=== PATIENT | male | born 1960 | race Caucasian/White ===

== ENCOUNTER → 2016-09-27 | Outpatient (REF) | payer OTHER ==
[2016-09-27 16:43] LABS: ALBUMIN 4.3 GM/DL (3.2-5.2); ALBUMIN/GLOBULIN RATIO 1.13 (1.00-1.93); ALKALINE PHOSPHATASE 105 U/L (45-117); ALT/SGPT 27 U/L (12-78); ANION GAP 5 MEQ/L (8-16); AST/SGOT 19 U/L (15-37); BILIRUBIN,TOTAL 0.6 MG/DL (0.2-1.0); BLOOD UREA NITROGEN 13 MG/DL (7-18); CALCIUM LEVEL 9.1 MG/DL (8.5-10.1); CARBON DIOXIDE LEVEL 33 MEQ/L (21-32); CHLORIDE LEVEL 102 MEQ/L (98-107); CHOLESTEROL LEVEL 164 MG/DL (<200); CREATININE FOR GFR 0.99 MG/DL (0.70-1.30); GLOMERULAR FILTRATION RATE > 60.0 (>56); GLUCOSE, FASTING 99 MG/DL (70-105); SODIUM LEVEL 140 MEQ/L (136-145); TOTAL PROTEIN 8.1 GM/DL (6.4-8.2); TRIGLYCERIDES LEVEL 103 MG/DL (<150)
== END ==
LOC: M SFHCCLAY 09:49
PROVIDERS: ATTEND Nurse Practitioner
DX: E78.5 Hyperlipidemia, unspecified (principal)

== ENCOUNTER → 2017-11-03 | Outpatient (REF) | payer OTHER ==
[2017-11-03 11:51] LABS: BASO # 0.1 10^3/uL (0.0-0.2); BASO % 1.2 % (0.0-1.0); EOS # 0.2 10^3/uL (0.0-0.50); EOS % 3.2 % (0.0-3.0); HEMOGLOBIN 15.7 g/dl (13.5-17.5); IMMATURE GRANULOCYTE % 0.3 % (0-3.0); LYMPH # 0.9 10^3/uL (1.5-4.5); LYMPH % 14.1 % (24.0-44.0); MEAN CORPUSCULAR HEMOGLOBIN 29.9 pg (27.0-33.0); MEAN CORPUSCULAR HGB CONC 34.9 g/dl (32.0-36.5); MEAN CORPUSCULAR VOLUME 85.7 fl (80.0-96.0); MONO % 14.7 % (0.0-5.0); NEUTROPHILS # 4.4 10^3/uL (1.8-7.7); NEUTROPHILS % 66.5 % (36.0-66.0); PLATELET COUNT, AUTOMATED 194 10^3/uL (150-450); RED BLOOD COUNT 5.25 10^6/uL (4.30-6.10); WHITE BLOOD COUNT 6.6 10^3/uL (4.0-10.0)
[2017-11-03 12:12] LABS: ALBUMIN 3.9 GM/DL (3.2-5.2); ALBUMIN/GLOBULIN RATIO 1.15 (1.00-1.93); ALKALINE PHOSPHATASE 98 U/L (45-117); ALT/SGPT 26 U/L (12-78); ANION GAP 6 MEQ/L (8-16); AST/SGOT 18 U/L (7-37); BILIRUBIN,TOTAL 0.6 MG/DL (0.2-1.0); BLOOD UREA NITROGEN 18 MG/DL (7-18); CALCIUM LEVEL 8.4 MG/DL (8.5-10.1); CARBON DIOXIDE LEVEL 28 MEQ/L (21-32); CHLORIDE LEVEL 106 MEQ/L (98-107); CHOLESTEROL LEVEL 143 MG/DL (<200); CHOLESTEROL RISK RATIO 3.575 (<5); CREATININE FOR GFR 0.96 MG/DL (0.70-1.30); GLOMERULAR FILTRATION RATE > 60.0 (>56); GLUCOSE, FASTING 91 MG/DL (70-100); HDL CHOLESTEROL 40 MG/DL (>40); LDL CHOLESTEROL 86.4 MG/DL (<100); NON-HDL-C 103 MG/DL; POTASSIUM SERUM 4.4 MEQ/L (3.5-5.1); SODIUM LEVEL 140 MEQ/L (136-145); TOTAL PROTEIN 7.3 GM/DL (6.4-8.2); TRIGLYCERIDES LEVEL 83 MG/DL (<150)
[2017-11-03 12:51] LABS: ESTIMATED AVERAGE GLUCOSE 117 MG/DL (60-110); HEMOGLOBIN A1c 5.7 %
== END ==
LOC: M SFHCCLAY 08:27
DX: E78.2 Mixed hyperlipidemia (principal); Z00.00 Encounter for general adult medical examination without abnormal findings (principal); N52.9 Male erectile dysfunction, unspecified; E66.9 Obesity, unspecified; R73.01 Impaired fasting glucose
CPT/HCPCS: 80053

== ENCOUNTER → 2018-10-05 | Outpatient (CLI) | payer OTHER ==
--- NOTE | 2018-10-10 23:30 | SLEEPHOME ---
DATE OF PROCEDURE: 10/05/2018 Diagnostic home sleep testing was performed due to concern for the obstructive sleep apnea syndrome in this patient with a history of snoring and nonrestorative sleep. For testing a nocturnal T3 respiratory monitoring device was used. Continuous record was made of pulse, oxygen saturation, airflow, chest, abdominal strain and body position. 9 hours and 59 minutes of data were reviewed. There were 7 hours and 3 minutes marked as time in bed. During the interval marked time in bed, there were only 29 respiratory events identified of 10 seconds in duration or greater for a respiratory event index of 4.1. The events seen were more frequently identified in the supine posture. Baseline pulse rate 56 beats per minute, pulse rate ranged 46-129. Baseline saturation 95%, saturations fell to 87% with an oxygen desaturation index of 2.4. Testing was performed in both the supine and nonsupine positions. IMPRESSION: Borderline diagnostic home sleep test with repetitive respiratory events, an index of 4.1, and brief desaturations to 87% is suggestive of sleep disordered breathing. RECOMMENDATIONS: Sleep position retraining for avoidance of the supine posture should result in significant improvement based on these finding. If the patient continues to experience difficulty, referral for a formal sleep evaluation and in laboratory nocturnal polysomnography is a more sensitive measure for mild apneic disease. MIKAEL
== END ==
LOC: M SLEEP HO 10:58
PROVIDERS: ATTEND Nurse Practitioner Adult Health
DX: G47.30 Sleep apnea, unspecified (principal)

== ENCOUNTER → 2018-11-27 | Outpatient (REF) | payer OTHER ==
[2018-11-27 13:01] LABS: ALT/SGPT 28 U/L (12-78); BILIRUBIN,TOTAL 0.5 MG/DL (0.2-1.0); BLOOD UREA NITROGEN 19 MG/DL (7-18); CALCIUM LEVEL 8.4 MG/DL (8.5-10.1); CARBON DIOXIDE LEVEL 30 MEQ/L (21-32); CHLORIDE LEVEL 105 MEQ/L (98-107); CHOLESTEROL LEVEL 174 MG/DL (<200); CHOLESTEROL RISK RATIO 3.866 (<5); CREATININE FOR GFR 0.91 MG/DL (0.70-1.30); GLOMERULAR FILTRATION RATE > 60.0 (>56); GLUCOSE, FASTING 117 MG/DL (70-100); HDL CHOLESTEROL 45 MG/DL (>40); LDL CHOLESTEROL 104 MG/DL (<100); NON-HDL-C 129 MG/DL; POTASSIUM SERUM 4.2 MEQ/L (3.5-5.1); SODIUM LEVEL 140 MEQ/L (136-145); TOTAL PROTEIN 7.4 GM/DL (6.4-8.2); TRIGLYCERIDES LEVEL 126 MG/DL (<150)
[2018-11-27 14:16] LABS: HEMOGLOBIN A1c 5.8 %
== END ==
LOC: M SFHCCLAY 07:38
PROVIDERS: ATTEND Family Medicine
DX: E78.2 Mixed hyperlipidemia (principal); R73.01 Impaired fasting glucose

== ENCOUNTER → 2018-12-13 | Outpatient (CLI) | payer OTHER | LOC: M SMT 11:20 | PROVIDERS: ATTEND Nurse Practitioner Women's Health | DX: Z12.5 Encounter for screening for malignant neoplasm of prostate (principal) | CPT/HCPCS: 36415; G0103 ==

== ENCOUNTER → 2018-12-19 | Outpatient (CLI) | payer OTHER ==
[~2018-12-19] MED LIST: E-Z-GAS II EFFERVESCENT PACKET (SODIUM BICARB./CITRIC ACID/SIMETHICONE) As Ordered ONE; E-Z-HD 98% w/w 340GM SUSP BTL As Ordered ONE; E-Z-PAQUE 96% w/w SUSP 176GM BTL As Ordered ONE
--- NOTE | 2018-12-19 16:57 | REP ---
Upper GI air contrast The procedure was performed under the direct supervision of Dr. Tubbs. The images were reviewed with Dr. Tubbs The project developer film shows no organomegaly or pathological masses. The intestinal gas pattern is non-specific. There is a small irregular calcification in the pelvis above the ischial spine. This is nonspecific and may represent a ureteral stone versus a phlebolith. Correlate clinically. Liquid barium and gas producing crystals were given in the erect position as well as liquid barium in the prone oblique position in order to perform a double contrast upper GI examination. The oral and pharyngeal stages of deglutition are unremarkable. Esophageal transport is prompt and efficient and there is no esophagitis, stricture or mucosal ring. There is a small sliding-type hiatal hernia. Gastroesophageal reflux is not demonstrated on this examination. The stomach avelar are normally outlined . The rugal folds are smooth and regular. There is no gastritis neoplasm or ulcer disease. In the post bulbar duodenum there are thickened folds which may represent duodenitis. There is no samara ulcer identified. The visualized portion of the proximal small bowel appears normal in course and caliber. Impression: 1. There is a small sliding-type hiatal hernia. 2. There are thickened folds in the post bulbar duodenum which may represent duodenitis. There is no samara ulcer identified. 3. There is a small irregular calcification in the pelvis above the ischial spine. This is nonspecific and may represent a ureteral stone versus a phlebolith. Correlate clinically. 1.5 minutes of fluoro time was utilized for this procedure. Reviewed by JERMAINE Rossi 12/19/2018 04:47 P Electronically Signed by Husam Tubbs MD 12/19/2018 04:48 P
== END ==
LOC: M RAD 09:53
PROVIDERS: ATTEND Family Medicine
DX: K21.9 Gastro-esophageal reflux disease without esophagitis (principal)

== ENCOUNTER → 2019-03-30 | Outpatient (REF) | payer OTHER | LOC: M SFHCCLAY 15:48 | PROVIDERS: ATTEND Family Medicine | DX: N39.0 Urinary tract infection, site not specified (principal) ==

== ENCOUNTER → 2019-04-21 | Outpatient (REF) | payer OTHER | LOC: M LAB REF 09:03 | PROVIDERS: ATTEND Physician Assistant | DX: R30.0 Dysuria (principal) ==

== ENCOUNTER → 2019-06-05 | Outpatient (REF) | payer OTHER ==
[2019-06-05 16:34] LABS: BASO # 0.1 10^3/uL (0.0-0.2); BASO % 0.6 % (0.0-1.0); EOS # 0.1 10^3/uL (0.0-0.5); EOS % 0.9 % (0.0-3.0); HEMATOCRIT 50.6 % (42.0-52.0); HEMOGLOBIN 16.3 g/dl (13.5-17.5); LYMPH # 1.1 10^3/uL (1.5-5.0); LYMPH % 12.4 % (24.0-44.0); MEAN CORPUSCULAR HEMOGLOBIN 28.2 pg (27.0-33.0); MEAN CORPUSCULAR HGB CONC 32.2 g/dl (32.0-36.5); MEAN CORPUSCULAR VOLUME 87.5 fl (80.0-96.0); MONO # 0.9 10^3/uL (0.0-0.8); MONO % 10.7 % (0.0-5.0); NEUTROPHILS # 6.3 10^3/uL (1.5-8.5); NEUTROPHILS % 75.2 % (36.0-66.0); PLATELET COUNT, AUTOMATED 212 10^3/uL (150-450); RED BLOOD COUNT 5.78 10^6/uL (4.30-6.10); WHITE BLOOD COUNT 8.4 10^3/uL (4.0-10.0)
[2019-06-05 16:38] LABS: ALBUMIN 4.2 GM/DL (3.2-5.2); ALT/SGPT 24 U/L (12-78); BILIRUBIN,TOTAL 0.8 MG/DL (0.2-1.0); BLOOD UREA NITROGEN 13 MG/DL (7-18); C REACTIVE PROTEIN QUANTITATIV 1.73 MG/DL (0.00-0.30); CALCIUM LEVEL 8.9 MG/DL (8.5-10.1); CARBON DIOXIDE LEVEL 29 MEQ/L (21-32); CHLORIDE LEVEL 101 MEQ/L (98-107); CHOLESTEROL LEVEL 140 MG/DL (<200); CHOLESTEROL RISK RATIO 3.888 (<5); CREATININE FOR GFR 1.11 MG/DL (0.70-1.30); GLOMERULAR FILTRATION RATE > 60.0 (>56); GLUCOSE, FASTING 86 MG/DL (70-100); HDL CHOLESTEROL 36 MG/DL (>40); LDL CHOLESTEROL 86 MG/DL (<100); NON-HDL-C 104 MG/DL; POTASSIUM SERUM 4.3 MEQ/L (3.5-5.1); RHEUMATOID FACTOR QUANT < 10.0 IU/ML (<15.0); SODIUM LEVEL 137 MEQ/L (136-145); TOTAL PROTEIN 7.9 GM/DL (6.4-8.2); TRIGLYCERIDES LEVEL 92 MG/DL (<150)
[2019-06-05 16:58] LABS: HEMOGLOBIN A1c 5.5 %
[2019-06-08 00:07] LABS: ANA (HEP2) Negative (.); CYCLIC CITRULLINATED PEPTIDE 9 units (0-19); Lyme Disease IgG/IgM Antibodie <0.91 ISR (0.00-0.90); Lyme Disease IgM Ab Quantitati <0.80 index (0.00-0.79)
== END ==
LOC: M SFHCCLAY 09:42
PROVIDERS: ATTEND Family Medicine
DX: E78.2 Mixed hyperlipidemia (principal); R73.01 Impaired fasting glucose; M25.50 Pain in unspecified joint

== ENCOUNTER → 2019-07-10 | Outpatient (REF) | payer OTHER ==
[2019-07-10 13:13] LABS: APPEARANCE, URINE CLEAR (CLEAR); BACTERIA, URINE AUTO NEGATIVE (NEGATIVE); BILIRUBIN, URINE AUTO NEGATIVE (NEGATIVE); BLOOD, URINE BLOOD NEGATIVE (NEGATIVE); COLOR, URINE YELLOW (YELLOW); GLUCOSE, URINE (UA) AUTO NEGATIVE (NEGATIVE); KETONE, URINE AUTO NEGATIVE (NEGATIVE); LEUKOCYTE ESTERASE, URINE AUTO NEGATIVE (NEGATIVE); NITRITE, URINE AUTO NEGATIVE (NEGATIVE); PROTEIN, URINE AUTO NEGATIVE (NEGATIVE); RBC, URINE AUTO 0 /HPF (0-3); SPECIFIC GRAVITY URINE AUTO 1.013 (1.002-1.035); SQUAMOUS EPITHELIAL CELL UR AU 0 /HPF (0-6); UROBILINOGEN, URINE AUTO 0.2 mg/dL (0.0-2.0); WBC, URINE AUTO 1 /HPF (0-3)
== END ==
LOC: M SMT 12:31
PROVIDERS: ATTEND Nurse Practitioner Women's Health
DX: N39.0 Urinary tract infection, site not specified (principal)

== ENCOUNTER → 2019-07-23 | Outpatient (REF) | payer OTHER ==
[2019-07-23 18:24] LABS: APPEARANCE, URINE CLOUDY (CLEAR); BACTERIA, URINE AUTO 3+ (NEGATIVE); BILIRUBIN, URINE AUTO NEGATIVE (NEGATIVE); BLOOD, URINE BLOOD 1+ (NEGATIVE); COLOR, URINE YELLOW (YELLOW); GLUCOSE, URINE (UA) AUTO NEGATIVE (NEGATIVE); KETONE, URINE AUTO NEGATIVE (NEGATIVE); LEUKOCYTE ESTERASE, URINE AUTO 1+ (NEGATIVE); MUCUS, URINE SMALL (NEGATIVE); NITRITE, URINE AUTO POSITIVE (NEGATIVE); PROTEIN, URINE AUTO NEGATIVE (NEGATIVE); RBC, URINE AUTO 2 /HPF (0-3); SQUAMOUS EPITHELIAL CELL UR AU 0 /HPF (0-6); UROBILINOGEN, URINE AUTO 0.2 mg/dL (0.0-2.0); WBC, URINE AUTO 26 /HPF (0-3)
== END ==
LOC: M LABSMT 10:50
PROVIDERS: ATTEND Nurse Practitioner Women's Health
DX: N39.0 Urinary tract infection, site not specified (principal)

== ENCOUNTER → 2019-08-14 | Outpatient (REF) | payer OTHER ==
[2019-08-14 17:37] LABS: APPEARANCE, URINE CLEAR (CLEAR); BACTERIA, URINE AUTO NEGATIVE (NEGATIVE); BILIRUBIN, URINE AUTO NEGATIVE (NEGATIVE); BLOOD, URINE BLOOD NEGATIVE (NEGATIVE); COLOR, URINE YELLOW (YELLOW); GLUCOSE, URINE (UA) AUTO NEGATIVE (NEGATIVE); KETONE, URINE AUTO NEGATIVE (NEGATIVE); LEUKOCYTE ESTERASE, URINE AUTO NEGATIVE (NEGATIVE); NITRITE, URINE AUTO NEGATIVE (NEGATIVE); PROTEIN, URINE AUTO NEGATIVE (NEGATIVE); RBC, URINE AUTO 0 /HPF (0-3); SPECIFIC GRAVITY URINE AUTO 1.019 (1.002-1.035); SQUAMOUS EPITHELIAL CELL UR AU 0 /HPF (0-6); UROBILINOGEN, URINE AUTO 0.2 mg/dL (0.0-2.0); WBC, URINE AUTO 0 /HPF (0-3)
== END ==
LOC: M LAB REF 17:09
PROVIDERS: ATTEND Urology
DX: N41.9 Inflammatory disease of prostate, unspecified (principal)

== ENCOUNTER → 2019-10-19 | Outpatient (CLI) | payer OTHER ==
[~2019-10-19] MED LIST changes: +ASPI81TA85 PO; +BACT800T5 PO; -E-Z-GAS II EFFERVESCENT PACKET (SODIUM BICARB./CITRIC ACID/SIMETHICONE) As Ordered ONE; -E-Z-HD 98% w/w 340GM SUSP BTL As Ordered ONE; -E-Z-PAQUE 96% w/w SUSP 176GM BTL As Ordered ONE
== END ==
LOC: M LABSMTC 10:40
PROVIDERS: ATTEND Anesthesiology
DX: Z01.818 Encounter for other preprocedural examination (principal); Z11.59 Encounter for screening for other viral diseases
CPT/HCPCS: C9803; U0003

== ENCOUNTER 2019-10-22 12:03 | Day surgery (SDC) | payer OTHER ==
[~2019-10-22] VITALS: Ht 180.3 cm; Wt 109.3 kg
[~2019-10-22 12:03] MED LIST changes: +LIDOCAINE 2% 100MG/5ML SDV (FOR ANES.) As Ordered ONE; +NS 1,000 ML IV ONE; +fentaNYL 100 MCG/2 ML INJECTION (J3010) As Ordered ONE; +propofoL 500 MG/50 ML VIAL As Ordered ONE
--- NOTE | 2019-10-22 13:53 | ROOR ---
Patient Name: Larry Olivarez Procedure Date: 10/22/2019 12:56 PM Date of : 1960 Age: 59 Room: [facility] Gender: Male Note Status: Finalized Procedure: Colonoscopy Indications: High risk colon cancer surveillance: Personal history of colonic polyps Providers: Ashwin REAGAN MD Referring MD: BASSAM BERRY DO Requesting Provider: Medicines: Monitored Anesthesia Care Complications: No immediate complications. Procedure: Pre-Anesthesia Assessment: - The heart rate, respiratory rate, oxygen saturations, blood pressure, adequacy of pulmonary ventilation, and response to care were monitored throughout the procedure. The Colonoscope was introduced through the anus and advanced to 5 cm into the ileum. The colonoscopy was performed without difficulty. The patient tolerated the procedure well. The quality of the bowel preparation was good. Findings: The perianal and digital rectal examinations were normal. The terminal ileum contained one umbilicated, non-bleeding pale/wite submucosal nodule. The nodule was 10 mm in diameter. Cold snare was used to unroof, and biopsies were taken with a cold forceps for histology. To prevent bleeding after the biopsy, one hemostatic clip was successfully placed. A 6 mm polyp was found in the sigmoid colon. The polyp was sessile. The polyp was removed with a cold snare. Resection and retrieval were complete. Small Internal Hemorrhoids. The exam was otherwise without abnormality on direct and retroflexion views. Impression: - One 10mm submucosal, pale nodule in the terminal ileum. Unroofed and Biopsied to r/o lipoma, r/o carcinoid, r/o GIST. Clip was placed. - One 6 mm polyp in the sigmoid colon, removed with a cold snare. Resected and retrieved. - Small Internal Hemorrhoids. - The examination was otherwise normal on direct and retroflexion views. Recommendation: - Await pathology results. - Telephone endoscopist for pathology results in 2 weeks. Ashwin Reagan MD Ashwin REAGAN MD 10/22/2019 1:53:05 PM Electronically signed by Ashwin REAGAN MD Number of Addenda: 0 Note Initiated On: 10/22/2019 12:56 PM Estimated Blood Loss: Estimated blood loss: none.
--- NOTE | 2019-10-22 13:57 | ROOR ---
Patient Name: Larry Olivarez Procedure Date: 10/22/2019 12:54 PM Date of : 1960 Age: 59 Room: [facility] Gender: Male Note Status: Finalized Procedure: Upper GI endoscopy Indications: Heartburn Providers: Ashwin REAGAN MD Referring MD: BASSAM BERRY DO Requesting Provider: Medicines: Monitored Anesthesia Care Complications: No immediate complications. Procedure: Pre-Anesthesia Assessment: - The heart rate, respiratory rate, oxygen saturations, blood pressure, adequacy of pulmonary ventilation, and response to care were monitored throughout the procedure. The Endoscope was introduced through the mouth, and advanced to the second part of duodenum. The upper GI endoscopy was accomplished without difficulty. The patient tolerated the procedure well. Findings: Moderately severe esophagitis was found at the gastroesophageal junction. Biopsies were taken with a cold forceps for histology. Scattered mild inflammation was found in the gastric antrum. Biopsies were taken with a cold forceps for Helicobacter pylori testing. Scattered mild inflammation characterized by erythema was found in the first portion of the duodenum. Biopsies were taken with a cold forceps for histology. Impression: - Moderate esophagitis. Biopsied. - Mild gastritis. Biopsied. - Mild duodenitis. Biopsied. Recommendation: - Use Prilosec (omeprazole) 40 mg PO daily. - (the script was sent to your pharmacy on file) - Telephone endoscopist for pathology results in 2 weeks. Ashwin Reagan MD Ashwin REAGAN MD 10/22/2019 1:57:40 PM Electronically signed by Ashwin REAGAN MD Number of Addenda: 0 Note Initiated On: 10/22/2019 12:54 PM Estimated Blood Loss: Estimated blood loss: none.
[2019-10-22 14:15] VITALS: BP 116/64
== END 2019-10-22 14:57 | disposition home or self-care (01) ==
LOC: M OPP 12:03
PROVIDERS: ATTEND Internal Medicine Gastroenterology
DX: Z12.11 Encounter for screening for malignant neoplasm of colon (principal); Z86.010 Personal history of colon polyps; D13.39 Benign neoplasm of other parts of small intestine; D12.5 Benign neoplasm of sigmoid colon; K20.9 Esophagitis, unspecified; K29.70 Gastritis, unspecified, without bleeding; K29.80 Duodenitis without bleeding; R12 Heartburn; Z79.82 Long term (current) use of aspirin; Z79.899 Other long term (current) drug therapy; Z91.030 Bee allergy status; Z87.891 Personal history of nicotine dependence
CPT/HCPCS: 43239; 45380; 45385; 88305; J3010

== ENCOUNTER → 2020-03-26 | Outpatient (REF) | payer OTHER ==
[~2020-03-26] MED LIST changes: -ASPI81TA85 PO; +ASPI81TA86 PO; -LIDOCAINE 2% 100MG/5ML SDV (FOR ANES.) As Ordered ONE; -NS 1,000 ML IV ONE; -fentaNYL 100 MCG/2 ML INJECTION (J3010) As Ordered ONE; -propofoL 500 MG/50 ML VIAL As Ordered ONE
[2020-03-26 13:42] LABS: ALBUMIN 3.9 GM/DL (3.2-5.2); ALT/SGPT 23 U/L (12-78); BILIRUBIN,TOTAL 0.6 MG/DL (0.2-1.0); BLOOD UREA NITROGEN 16 MG/DL (7-18); CALCIUM LEVEL 9.4 MG/DL (8.5-10.1); CARBON DIOXIDE LEVEL 29 MEQ/L (21-32); CHLORIDE LEVEL 105 MEQ/L (98-107); CHOLESTEROL LEVEL 222 MG/DL (<200); CHOLESTEROL RISK RATIO 5.842 (<5); CREATININE FOR GFR 1.04 MG/DL (0.70-1.30); GLOMERULAR FILTRATION RATE > 60.0 (>56); GLUCOSE, FASTING 101 MG/DL (70-100); HDL CHOLESTEROL 38 MG/DL (>40); LDL CHOLESTEROL 151 MG/DL (<100); NON-HDL-C 184 MG/DL; SODIUM LEVEL 140 MEQ/L (136-145); TOTAL PROTEIN 7.6 GM/DL (6.4-8.2); TRIGLYCERIDES LEVEL 165 MG/DL (<150)
[2020-03-26 19:41] LABS: HEMOGLOBIN A1c 5.5 %
== END ==
LOC: M SFHCCLAY 11:09
PROVIDERS: ATTEND Family Medicine
DX: E78.2 Mixed hyperlipidemia (principal); R73.01 Impaired fasting glucose

== ENCOUNTER → 2020-03-26 | Outpatient (REF) | payer OTHER | LOC: M SFHCCLAY 12:31 | PROVIDERS: ATTEND Family Medicine | DX: E78.2 Mixed hyperlipidemia (principal); R73.01 Impaired fasting glucose ==

== ENCOUNTER → 2020-09-12 | Outpatient (REF) | payer OTHER ==
[2020-09-15 17:07] LABS: TESTOSTERONE FREE (DIRECT) 5.1 pg/mL (7.2-24.0)
== END ==
LOC: M SFHCCLAY 12:36
PROVIDERS: ATTEND Urology
DX: N52.9 Male erectile dysfunction, unspecified (principal)

== ENCOUNTER → 2021-03-04 | Outpatient (CLI) | payer OTHER ==
[~2021-03-04] MED LIST changes: +ASPI81TA26 PO; +CHLO25TA PO; +OMEP40CA4 PO
== END ==
LOC: M LABSMTC 10:35
PROVIDERS: ATTEND Anesthesiology
DX: Z01.812 Encounter for preprocedural laboratory examination (principal); Z20.822 Contact with and (suspected) exposure to COVID-19

== ENCOUNTER 2021-03-09 07:23 | Day surgery (SDC) | payer OTHER ==
[~2021-03-09] VITALS: Ht 180.3 cm; Wt 113.9 kg
[~2021-03-09 07:23] MED LIST changes: +LIDOCAINE 2% 100MG/5ML SDV (FOR ANES.) As Ordered ONE; +NS 1,000 ML IV ONE; +propofoL 200 MG/20 ML VIAL As Ordered ONE
--- OUTSIDE RECORDS SUMMARY | 2021-03-09 07:26 | CCD ---
Author Author [facility] Organization [facility] Address Unknown Phone Unavailable Care Team Providers [employer] Name Role Phone Maring, Harry PA Unavailable Unavailable Maring, Harry PA Unavailable Unavailable Maring, Harry PA Unavailable Unavailable Maring, Harry PA Unavailable Unavailable Maring, Harry PA Unavailable Unavailable Maring, Harry PA Unavailable Unavailable Maring, Harry PA Unavailable Unavailable Maring, Harry PA Unavailable Unavailable Maring, Ahrry PA Unavailable Unavailable Maring, Harry PA Unavailable Unavailable Maring, Harry PA Unavailable Unavailable Maring, Harry PA Unavailable Unavailable Maring, Harry PA Unavailable Unavailable Maring, Harry PA Unavailable Unavailable Maring, Harry PA Unavailable Unavailable Maring, Harry PA Unavailable Unavailable VIVIAN JEFFERSON MD Unavailable Unavailable VIVIAN JEFFERSON MD Unavailable Unavailable VIVIAN JEFFERSON MD Unavailable Unavailable VIVIAN JEFFERSON MD Unavailable Unavailable VIVIAN JEFFERSON MD Unavailable Unavailable VIVIAN JEFFERSON MD Unavailable Unavailable VIVIAN JEFFERSON MD Unavailable Unavailable VIVIAN JEFFERSON MD Unavailable Unavailable VIVIAN JEFFERSON MD Unavailable Unavailable VIVIAN JEFFERSON MD Unavailable Unavailable VIVIAN JEFFERSON MD Unavailable Unavailable VIVIAN JEFFERSON MD Unavailable Unavailable VIVIAN JEFFERSON MD Unavailable Unavailable VIVIAN JEFFERSON MD Unavailable Unavailable VIVIAN JEFFERSON MD Unavailable Unavailable VIVIAN JEFFERSON MD Unavailable Unavailable VIVIAN JEFFERSON MD Unavailable Unavailable VIVIAN JEFFERSON MD Unavailable Unavailable VIVIAN JEFFERSON MD Unavailable Unavailable VIVIAN JEFFERSON MD Unavailable Unavailable VIVIAN JEFFERSON MD Unavailable Unavailable VIVIAN JEFFERSON MD Unavailable Unavailable VIVIAN JEFFERSON MD Unavailable Unavailable REINDL, VIVIAN MD Unavailable Unavailable REINDL, VIVIAN MD Unavailable Unavailable REINDL, VIVIAN MD Unavailable Unavailable REINDL, VIVIAN MD Unavailable Unavailable REINDL, VIVIAN MD Unavailable Unavailable REINDL, VIVIAN MD Unavailable Unavailable REINDL, VIVIAN MD Unavailable Unavailable REINDL, VIVIAN MD Unavailable Unavailable REINDL, VIVIAN MD Unavailable Unavailable REINDL, VIVIAN MD Unavailable Unavailable REINDL, VIVIAN MD Unavailable Unavailable REINDL, VIVIAN MD Unavailable Unavailable REINDL, VIVIAN MD Unavailable Unavailable REINDL, VIVIAN MD Unavailable Unavailable REINDL, VIVIAN MD Unavailable Unavailable REINDL, VIVIAN MD Unavailable Unavailable REINDL, VIVIAN MD Unavailable Unavailable REINDL, VIVIAN MD Unavailable Unavailable REINDL, VIVIAN MD Unavailable Unavailable Re-disclosure Warning The records that you are about to access may contain information from federally-assisted alcohol or drug abuse programs. If such information is present, then the following federally mandated warning applies: This information has been disclosed to you from records protected by federal confidentiality rules (42 CFR part 2). The federal rules prohibit you from making any further disclosure of this information unless further disclosure is expressly permitted by the written consent of the person to whom it pertains or as otherwise permitted by 42 CFR part 2. A general authorization for the release of medical or other information is NOT sufficient for this purpose. The Federal rules restrict any use of the information to criminally investigate or prosecute any alcohol or drug abuse patient.The records that you are about to access may contain highly sensitive health information, the redisclosure of which is protected by Article 27-F of the [facility] Public Health law. If you continue you may have access to information: Regarding HIV / AIDS; Provided by facilities licensed or operated by the [facility] Office of Mental Health; or Provided by the [facility] Office for People With Developmental Disabilities. If such information is present, then the following [facility] mandated warning applies: This information has been disclosed to you from confidential records which are protected by state law. State law prohibits you from making any further disclosure of this information without the specific written consent of the person to whom it pertains, or as otherwise permitted by law. Any unauthorized further disclosure in violation of state law may result in a fine or long term sentence or both. A general authorization for the release of medical or other information is NOT sufficient authorization for further disc losure. Encounters Encounter Providers Location Date Indications Data Source(s ) Unknown [address] [address] 12/05/2020 12:00:00 AM EDT eCW1 ([facility]) Outpatient Attender: VIVIAN Coombs/Sawyer/Manuelito/Pamela cabrera 11/20/2020 01:00:00 PM EDT MEDENT ([facility]) [place] [address] [address] 09/09/2020 12:00:00 AM EDT eCW1 ([facility]) [place] [address] [address] 09/01/2020 12:00:00 AM EDT eCW1 ([facility]) [place] [address] [address] 07/23/2020 12:00:00 AM EST eCW1 ([facility]) Outpatient Attender: Harry URBAN 06/26/19 09:04:06 AM EST - 06/26/2020 09:31:37 AM EST DocuTap ([facility] ) [place] [address] [address] 05/30/2020 12:00:00 AM EST eCW1 ([facility]) [place] [address] [address] 05/13/2020 12:00:00 AM EST eCW1 ([facility]) [place] [address] [address] 03/28/2020 12:00:00 AM EST eCW1 ([facility]) [place] [address] [address] 03/24/2020 12:00:00 AM EST eCW1 ([facility]) Immunizations Vaccine Date Status Description Data Source(s) COVID-19 dose #2 given elsewhere Unspecified 08/20/2020 07:3 8:00 AM EDT completed eCW1 ([facility]) COVID-19 dose #2 given elsewhere Unspecified 08/20/2020 07:3 8:00 AM EDT completed eCW1 ([facility]) COVID-19 dose #2 given elsewhere Unspecified 08/20/2020 07:3 8:00 AM EDT completed eCW1 ([facility]) COVID-19 VACCINE Pfizer 08/20/2020 12:00:00 AM EDT completed NYSIIS Vaccine Series Complete: YESThis Data wa s Submitted to [facility] Via [employer]. COVID-19 dose #1 given elsewhere Unspecified 07/30/2020 07:3 8:00 AM EST completed eCW1 ([facility]) COVID-19 dose #1 given elsewhere Unspecified 07/30/2020 07:3 8:00 AM EST completed eCW1 ([facility]) COVID-19 dose #1 given elsewhere Unspecified 07/30/2020 07:3 8:00 AM EST completed eCW1 ([facility]) COVID-19 VACCINE Pfizer 07/30/2020 12:00:00 AM EST completed NYSIIS Vaccine Series Complete: NOThis Data was Submitted to [facility] Via [employer]. influenza, recombinant, quadrIvalent,injectable, prese rvative free 03/28/2020 11:23:00 AM EST completed eCW1 ([facility]) influenza, recombinant, quadrIvalent,injectable, prese rvative free 03/28/2020 11:23:00 AM EST completed eCW1 ([facility]) influenza, recombinant, quadrIvalent,injectable, prese rvative free 03/28/2020 11:23:00 AM EST completed eCW1 ([facility]) influenza, recombinant, quadrIvalent,injectable, prese rvative free 03/28/2020 11:23:00 AM EST completed eCW1 ([facility]) influenza, recombinant, quadrIvalent,injectable, prese rvative free 03/28/2020 11:23:00 AM EST completed eCW1 ([facility]) influenza, recombinant, quadrIvalent,injectable, prese rvative free 03/28/2020 11:23:00 AM EST completed eCW1 ([facility]) influenza, recombinant, quadrIvalent,injectable, prese rvative free 03/28/2020 11:23:00 AM EST completed eCW1 ([facility]) Medications Medication Brand Name Start Date Product Form Dose Route Admi nistrative Instructions Pharmacy Instructions Status Indications Reaction Description Data Source(s) 60 mcg (15 mcg x 4)/0.5 mL 02/07/2021 12:00:00 AM EDT suspen kathia 0 INJECT INTO THE RIGHT ARM INJECT INTO THE RIGHT ARM SOLD: 02/07/2021 [facility] Magnesium Hydroxide 80 MG/ML Oral Suspension Milk Of Talita a 11/20/2020 12:00:00 AM EDT ORAL active M EDENT ([facility], ) Sutab Sutab 11/20/2020 12:00:00 AM EDT active MEDENT ([facility], ) 10 mg 09/01/2020 12:00:00 AM EDT tablet 30 TAKE ONE TABLET BY MOUTH EVERY DAY TAKE ONE TABLET BY MOUTH EVERY DAY SOLD: 09/04/2020 [facility] ezetimibe 10 MG Oral Tablet [Zetia] Zetia 10 MG Zetia 10 MG 09/01/2020 12:00:00 AM EDT 1.0 {tablet} active Zetia 10 MG eCW1 ([facility]) 10 mg 09/01/2020 12:00:00 AM EDT tablet 30 TAKE ONE TABLET BY MOUTH EVERY DAY TAKE ONE TABLET BY MOUTH EVERY DAY SOLD: 11/17/2020 [facility] 10 mg 09/01/2020 12:00:00 AM EDT tablet 30 TAKE ONE TABLET BY MOUTH EVERY DAY TAKE ONE TABLET BY MOUTH EVERY DAY SOLD: 10/14/2020 [facility] ezetimibe 10 MG Oral Tablet [Zetia] Zetia 10 MG Zetia 10 MG 09/01/2020 12:00:00 AM EDT 1.0 {tablet} active Zetia 10 MG eCW1 ([facility]) ezetimibe 10 MG Oral Tablet [Zetia] Zetia 10 MG Zetia 10 MG 09/01/2020 12:00:00 AM EDT 1.0 {tablet} active Zetia 10 MG eCW1 ([facility]) 40 mg 06/24/2020 12:00:00 AM EST capsule,delayed release (DR/EC) 30 TAKE ONE CAPSULE BY MOUTH EVERY DAY TAKE ONE CAPSULE BY MOUTH EVERY DAY SOLD: 08/07/2020 [facility] 40 mg 06/24/2020 12:00:00 AM EST capsule,delayed release (DR/EC) 30 TAKE ONE CAPSULE BY MOUTH EVERY DAY TAKE ONE CAPSULE BY MOUTH EVERY DAY SOLD: 10/14/2020 [facility] 40 mg 06/24/2020 12:00:00 AM EST capsule,delayed release (DR/EC) 30 TAKE ONE CAPSULE BY MOUTH EVERY DAY TAKE ONE CAPSULE BY MOUTH EVERY DAY SOLD: 06/26/2020 [facility] Chlorthalidone 25 MG Oral Tablet Chlorthalidone 25 MG 2020 12:00:00 AM EST 1.0 {tablet_in_the_morning_with_food} active Chlorthalidone 25 MG eCW1 ([facility]) 25 mg 05/30/2020 12:00:00 AM EST tablet 30 TAKE ONE TABLET BY MOUTH EVERY DAY IN THE MORNING WITH FOOD TAKE ONE TABLET BY MOUTH EVERY DAY IN MORNING WITH FOOD SOLD: 08/07/2020 [facility] Chlorthalidone 25 MG Oral Tablet Chlorthalidone 25 MG 2020 12:00:00 AM EST 1.0 {tablet_in_the_morning_with_food} active Chlorthalidone 25 MG eCW1 ([facility]) Chlorthalidone 25 MG Oral Tablet Chlorthalidone 25 MG 2020 12:00:00 AM EST 1.0 {tablet_in_the_morning_with_food} active Chlorthalidone 25 MG eCW1 ([facility]) Chlorthalidone 25 MG Oral Tablet Chlorthalidone 25 MG 2020 12:00:00 AM EST 1.0 {tablet_in_the_morning_with_food} active Chlorthalidone 25 MG eCW1 ([facility]) Chlorthalidone 25 MG Oral Tablet Chlorthalidone 25 MG 2020 12:00:00 AM EST 1.0 {tablet_in_the_morning_with_food} active Chlorthalidone 25 MG eCW1 ([facility]) 25 mg 05/30/2020 12:00:00 AM EST tablet 30 TAKE ONE TABLET BY MOUTH EVERY DAY IN THE MORNING WITH FOOD TAKE ONE TABLET BY MOUTH EVERY DAY IN TH E MORNING WITH FOOD SOLD: 06/02/2020 [facility] 25 mg 05/30/2020 12:00:00 AM EST tablet 30 TAKE ONE TABLET BY MOUTH EVERY DAY IN THE MORNING WITH FOOD TAKE ONE TABLET BY MOUTH EVERY DAY IN TH E MORNING WITH FOOD SOLD: 06/26/2020 [facility] 37.5 mg 03/28/2020 12:00:00 AM EST tablet 30 TAKE ONE TABLET BY MOUTH DAILY, MAXIMUM DAILY DOSE = 1 TAKE ONE TABLET BY MOUTH DAILY, MAXIMUM DAILY DOSE = 1 SOLD: 04/03/2020 [facility] Lovastatin 10 MG Oral Tablet Lovastatin 10 MG 03/28/2020 12:00:[address] active Lovastatin 10 MG eCW1 ([facility]) Lovastatin 10 MG Oral Tablet Lovastatin 10 MG 03/28/2020 12:00:[address] suspended Lovastatin 10 MG eCW1 ([facility]) Lovastatin 10 MG Oral Tablet Lovastatin 10 MG 03/28/2020 12:00:[address] active Lovastatin 10 MG eCW1 ([facility]) Lovastatin 10 MG Oral Tablet Lovastatin 10 MG 03/28/2020 12:00:[address] suspended Lovastatin 10 MG eCW1 ([facility]) Lovastatin 10 MG Oral Tablet LOVASTATIN 03/28/2020 12:00:00 AM EST tab let 30 TAKE ONE TABLET BY MOUTH EVERY DAY WITH EVENING MEAL TAKE ONE TABLET BY MOUTH EVERY DAY WITH EVENING MEAL SOLD: 05/14/2020 [facility] Lovastatin 10 MG Oral Tablet Lovastatin 10 MG 03/28/2020 12:00:[address] active Lovastatin 10 MG eCW1 ([facility]) Lovastatin 10 MG Oral Tablet LOVASTATIN 03/28/2020 12:00:00 AM EST tab let 30 TAKE ONE TABLET BY MOUTH EVERY DAY WITH EVENING MEAL TAKE ONE TABLET BY MOUTH EVERY DAY WITH EVENING MEAL SOLD: 04/03/2020 [facility] Lovastatin 10 MG Oral Tablet Lovastatin 10 MG 03/28/2020 12:00:[address] suspended Lovastatin 10 MG eCW1 ([facility]) Lovastatin 10 MG Oral Tablet Lovastatin 10 MG 03/28/2020 12:00:[address] active Lovastatin 10 MG eCW1 ([facility]) 40 mg 02/19/2020 12:00:00 AM EDT capsule,delayed release (DR/EC) 30 TAKE ONE CAPSULE BY MOUTH EVERY DAY TAKE ONE CAPSULE BY MOUTH EVERY DAY SOLD: 05/14/2020 [facility] 40 mg 02/19/2020 12:00:00 AM EDT capsule,delayed release (DR/EC) 30 TAKE ONE CAPSULE BY MOUTH EVERY DAY TAKE ONE CAPSULE BY MOUTH EVERY DAY SOLD: 02/23/2020 [facility] 40 mg 02/19/2020 12:00:00 AM EDT capsule,delayed release (DR/EC) 30 TAKE ONE CAPSULE BY MOUTH EVERY DAY TAKE ONE CAPSULE BY MOUTH EVERY DAY SOLD: 04/07/2020 [facility] 40 mg 10/23/2019 12:00:00 AM EDT capsule,delayed release (DR/EC) 30 TAKE ONE CAPSULE BY MOUTH EVERY DAY TAKE ONE CAPSULE BY MOUTH EVERY DAY SOLD: 01/08/2020 [facility] Insurance Providers Payer name Policy type / Coverage type Policy ID Covered constitution party ID Covered constitution party's relationship to carter Policy Carter Plan Information [facility]. [id number] [facility] [id number] ANSI-Commercial [id number] ANSI-Commercial [id number] ANSI-Commercial [id number] ANSI-Commercial [id number] ANSI-Commercial [id number] [facility] Commercial [id number] Self [id number] ANSI-Commercial [id number] ANSI-Commercial [id number] ANSI-Commercial [id number] ANSI-Commercial [id number] ANSI-Commercial [id number] [facility] [id number] SP U [id number] [employer] [id number] SP [id number] Problems, Conditions, and Diagnoses Code Display Name Description Problem Type Effective Dates Data Source(s) N40.0 [id number] Benign prostatic hyp erplasia without lower urinary tract symptoms Problem 09/09/2020 12:00:00 AM EDT eCW1 ([facility]) I10 [id number] Essential hypertension Problem 05/30/2020 12 :00:00 AM EST eCW1 ([facility]) Surgeries/Procedures Procedure Description Date Indications Data Source(s) OFFICE OUTPATIENT VISIT 25 MINUTES 11/20/2020 12:00:00 AM EDT MEDZACK ([facility]) ECG ROUTINE ECG W/LEAST 12 LDS W/I&R 05/13/2020 12:00: 00 AM EST eCW1 ([facility]) Immunization: Flublok Quadrivalent (18 years & older) 0.5mL IM (Influenza) 03/28/2020 12:00:00 AM EST eCW1 [facility] Results ID Date Data Source [id number] 06/26/2020 12:00:00 AM EST NYDIANNAOH Name Value Range Interpretation Code Description Data Magda rce(s) Supporting Document(s) SARS coronavirus 2 RNA [Presence] in Res piratory specimen by VIDA with probe detection POSITIVE NYSDOH This lab was ordered by Patricia Mendez and reported by [employer] Procedure Social History Code Duration Value Status Description Data Source(s ) Smoking 09/09/2020 12:00:00 AM EDT Former Smoker completed Former Smoker eCW1 ([facility]) Smoking 09/09/2020 12:00:00 AM EDT Former Smoker completed Former Smoker eCW1 ([facility]) Smoking 09/01/2020 12:00:00 AM EDT Former Smoker completed Former Smoker eCW1 ([facility]) Smoking 05/13/2020 12:00:00 AM EST Former Smoker completed Former Smoker eCW1 ([facility]) Smoking 05/13/2020 12:00:00 AM EST Former Smoker completed Former Smoker eCW1 ([facility]) Smoking 05/13/2020 12:00:00 AM EST Former Smoker completed Former Smoker eCW1 ([facility]) Smoking 03/28/2020 12:00:00 AM EST Former Smoker completed Former Smoker eCW1 ([facility]) Vital Signs ID Date Data Source UNK Name Value Range Interpretation Code Description Data Source(s) Systolic blood pressure 131 mm[Hg] 131 mm[Hg] M EDENT ([facility] ) Diastolic blood pressure 83 mm[Hg] 83 mm[Hg] [facility] Body height 71 [in_i] 71 [in_i] MEDENT ([facility]) 5'11" Body weight 248.00 [lb_av] 248.00 [lb_av] MEDEN T ([facility]) Body mass index (BMI) [Ratio] 34.6 kg/m2 34.6 k g/m2 [facility] [place] body weight 172 [lb_av] 172 [lb_av] MEDEN T ([facility]) Body weight 112.493 kg 112.493 kg MEDENT ([facility]) Body surface area Derived from formula 2.31 m2 2.31 m2 MEDENT ([facility]) Body weight 248 [lb_av] 248 [lb_av] eCW1 ([facility]) Body height [in_i] eCW1 ([facility]) Body mass index (BMI) [Ratio] 34.59 kg/m2 34.59 kg/m2 eCW1 ([facility]) Heart rate 86 /min 86 /min eCW1 ([facility]) Respiratory rate 18 /min 18 /min eCW1 ([facility]) Body temperature 98.4 [degF] 98.4 [degF] eCW1 ( [facility]) Systolic blood pressure 136 mm[Hg] 136 mm[Hg] e CW1 ([facility]) Diastolic blood pressure 78 mm[Hg] 78 mm[Hg] eCW1 ([facility]) Body weight 246.12 [lb_av] 246.12 [lb_av] eCW1 ([facility]) Body height [in_i] eCW1 ([facility]) Body mass index (BMI) [Ratio] 34.32 kg/m2 34.32 kg/m2 eCW1 ([facility]) Heart rate 56 /min 56 /min eCW1 ([facility]) Respiratory rate 16 /min 16 /min eCW1 ([facility]) Body temperature 97.4 [degF] 97.4 [degF] eCW1 ( [facility]) Systolic blood pressure 135 mm[Hg] 135 mm[Hg] e CW1 ([facility]) Diastolic blood pressure 87 mm[Hg] 87 mm[Hg] eCW1 ([facility]) Body weight 252 [lb_av] 252 [lb_av] eCW1 ([facility]) Body height [in_i] W1 ([facility]) Body mass index (BMI) [Ratio] 35.14 kg/m2 35.14 kg/m2 eCW1 ([facility]) Heart rate 71 /min 71 /min eCW1 ([facility]) Respiratory rate 16 /min 16 /min eCW1 ([facility]) Body temperature 98.1 [degF] 98.1 [degF] eCW1 ( [facility]) Systolic blood pressure 172 mm[Hg] 172 mm[Hg] e CW1 ([facility]) Diastolic blood pressure 97 mm[Hg] 97 mm[Hg] eCW1 ([facility]) Body weight 242.1 [lb_av] 242.1 [lb_av] eCW1 ([facility]) Body height [in_i] eCW1 ([facility]) Body mass index (BMI) [Ratio] 33.76 kg/m2 33.76 kg/m2 eCW1 ([facility]) Heart rate 65 /min 65 /min eCW1 ([facility]) Respiratory rate 18 /min 18 /min eCW1 ([facility]) Body temperature 97.6 [degF] 97.6 [degF] eCW1 ( [facility]) Systolic blood pressure 131 mm[Hg] 131 mm[Hg] e CW1 ([facility]) Diastolic blood pressure 87 mm[Hg] 87 mm[Hg] eCW1 ([facility]) Patient Treatment Plan of Care Planned Activity Planned Date Details Description Data Source (s) ezetimibe 10 MG Oral Tablet [Zetia] 09/01/2020 12:00:00 AM EDT eCW1 ([facility]) ezetimibe 10 MG Oral Tablet [Zetia] 09/01/2020 12:00:00 AM EDT eCW1 ([facility]) Chlorthalidone 25 MG Oral Tablet 05/30/2020 12:00:00 AM EST eCW1 ([facility]) Chlorthalidone 25 MG Oral Tablet 05/30/2020 12:00:00 AM EST eCW1 ([facility]) Chlorthalidone 25 MG Oral Tablet 05/30/2020 12:00:00 AM EST eCW1 ([facility]) Lovastatin 10 MG Oral Tablet 03/28/2020 12:00:00 AM EST eCW1 ([facility])
--- NOTE | 2021-03-09 09:30 | ROOR ---
Patient Name: Larry Olivarez Procedure Date: 03/09/2021 8:51 AM Date of : 1960 Age: 60 Room: [facility] Gender: Male Note Status: Finalized Procedure: Colonoscopy Indications: High risk colon cancer surveillance: Personal history of colonic polyps, Incidental - Therapeutic procedure (repeat biopsy of submucosal nodule in TI) Providers: Ashwin Reagan MD Referring MD: BASSAM BERRY DO Requesting Provider: Medicines: Monitored Anesthesia Care Complications: No immediate complications. Procedure: Pre-Anesthesia Assessment: - The heart rate, respiratory rate, oxygen saturations, blood pressure, adequacy of pulmonary ventilation, and response to care were monitored throughout the procedure. The Colonoscope was introduced through the anus and advanced to 11 cm into the ileum. The colonoscopy was performed without difficulty. The patient tolerated the procedure well. The quality of the bowel preparation was good. Findings: The perianal and digital rectal examinations were normal. The terminal ileum (within 3 cm of ICV) contained one submucosal, pale nodule. The nodule was 8-9 mm in diameter. Photographs from prior colonoscopy reviewed. It is unchanged from prior exam in 2019. Several biopsies were obtained with cold forceps for histology. A 5 mm polyp was found in the sigmoid colon. The polyp was sessile. The polyp was removed with a cold snare. Resection and retrieval were complete. The exam was otherwise without abnormality on direct and retroflexion views. Impression: - One 8 mm submucosal pale nodule in the terminal ileum. (unchanged from 10/2019). Unroofed and biopsied - One 5 mm polyp in the sigmoid colon, removed with a cold snare. Resected and retrieved. - The examination was otherwise normal on direct and retroflexion views. - Several biopsies were obtained. Recommendation: - Await pathology results. - If the pathology report is benign, then repeat colonoscopy for surveillance in 2-3 years. - Telephone endoscopist for pathology results in 2 weeks. Procedure Code(s): --- Professional --- 48990, Colonoscopy, flexible; with removal of tumor(s), polyp(s), or other lesion(s) by snare technique 41996, 60, Colonoscopy, flexible; with biopsy, single or multiple Diagnosis Code(s): --- Professional --- K63.5, Polyp of colon D13.39, Benign neoplasm of other parts of small intestine Z86.010, Personal history of colonic polyps CPT copyright 2019 [employer]. All rights reserved. The codes documented in this report are preliminary and upon receiving worker review may be revised to meet current compliance requirements. Ashwin Reagan MD Ashwin Reagan MD 03/09/2021 9:29:56 AM Electronically signed by Ashwin Reagan MD Number of Addenda: 0 Note Initiated On: 03/09/2021 8:51 AM Estimated Blood Loss: Estimated blood loss: none.
[2021-03-09 09:40] VITALS: BP 161/86
== END 2021-03-09 09:51 | disposition home or self-care (01) ==
LOC: M OPP 07:23
PROVIDERS: ATTEND Internal Medicine Gastroenterology
DX: Z12.11 Encounter for screening for malignant neoplasm of colon (principal); Z86.010 Personal history of colon polyps; K63.5 Polyp of colon; D13.39 Benign neoplasm of other parts of small intestine; R12 Heartburn; Z79.82 Long term (current) use of aspirin; Z79.899 Other long term (current) drug therapy; Z91.030 Bee allergy status

== ENCOUNTER → 2021-03-12 | Outpatient (REF) | payer OTHER ==
[~2021-03-12] MED LIST changes: -LIDOCAINE 2% 100MG/5ML SDV (FOR ANES.) As Ordered ONE; -NS 1,000 ML IV ONE; -propofoL 200 MG/20 ML VIAL As Ordered ONE
[2021-03-12 12:24] LABS: ALT/SGPT 39 U/L (12-78); BILIRUBIN,TOTAL 0.6 MG/DL (0.2-1.0); BLOOD UREA NITROGEN 19 MG/DL (7-18); CARBON DIOXIDE LEVEL 32 MEQ/L (21-32); CHLORIDE LEVEL 102 MEQ/L (98-107); CHOLESTEROL LEVEL 239 MG/DL (<200); CREATININE FOR GFR 1.18 MG/DL (0.70-1.30); GLOMERULAR FILTRATION RATE > 60.0 (>56); GLUCOSE, FASTING 114 MG/DL (70-100); SODIUM LEVEL 138 MEQ/L (136-145); TRIGLYCERIDES LEVEL 162 MG/DL (<150)
[2021-03-12 12:25] LABS: ALBUMIN 3.9 GM/DL (3.2-5.2); CHOLESTEROL RISK RATIO 6.459 (<5); HDL CHOLESTEROL 37 MG/DL (>40); LDL CHOLESTEROL 170 MG/DL (<100); NON-HDL-C 202 MG/DL
== END ==
LOC: M SFHCCLAY 07:13
PROVIDERS: ATTEND Family Medicine
DX: Z00.00 Encounter for general adult medical examination without abnormal findings (principal); E78.2 Mixed hyperlipidemia; I10 Essential (primary) hypertension

== ENCOUNTER → 2021-09-09 | Outpatient (REF) | payer OTHER ==
[2021-09-09 12:04] LABS: ALBUMIN 3.8 GM/DL (3.2-5.2); ALT/SGPT 33 U/L (12-78); BILIRUBIN,TOTAL 0.5 MG/DL (0.2-1.0); BLOOD UREA NITROGEN 20 MG/DL (7-18); CALCIUM LEVEL 8.9 MG/DL (8.8-10.2); CARBON DIOXIDE LEVEL 31 MEQ/L (21-32); CHLORIDE LEVEL 104 MEQ/L (98-107); CHOLESTEROL LEVEL 220 MG/DL (<200); CHOLESTEROL RISK RATIO 6.111 (<5); CREATININE FOR GFR 1.17 MG/DL (0.70-1.30); GLOMERULAR FILTRATION RATE > 60.0 (>49); GLUCOSE, FASTING 117 MG/DL (70-100); HDL CHOLESTEROL 36 MG/DL (>40); LDL CHOLESTEROL 159 MG/DL (<100); NON-HDL-C 184 MG/DL; POTASSIUM SERUM 3.8 MEQ/L (3.5-5.1); SODIUM LEVEL 139 MEQ/L (136-145); TOTAL PROTEIN 7.6 GM/DL (6.4-8.2); TRIGLYCERIDES LEVEL 127 MG/DL (<150)
[2021-09-09 13:06] LABS: HEMOGLOBIN A1c 5.5 %
[2021-09-10 14:14] LABS: TESTOSTERONE FREE (DIRECT) 8.8 pg/mL (6.6-18.1); TESTOSTERONE TOTAL FOR T&D > 1500.0 ng/dL (264-916)
== END ==
LOC: M SFHCCLAY 07:28
PROVIDERS: ATTEND Family Medicine
DX: Z00.00 Encounter for general adult medical examination without abnormal findings (principal); E78.2 Mixed hyperlipidemia; R73.01 Impaired fasting glucose

== ENCOUNTER → 2021-09-17 | Outpatient (REF) | payer OTHER ==
[2021-09-17 12:04] LABS: ESTRADIOL 28.2 PG/ML (<39.8); FOLLICLE STIMULATING HORMONE 2.3 mIU/mL (1.4-18.1); LUTEINIZING HORMONE 1.9 mIU/mL (1.5-9.3)
[2021-09-17 12:05] LABS: PROLACTIN 5.6 NG/ML (2.1-17.7)
[2021-09-18 18:08] LABS: TESTOSTERONE FREE (DIRECT) 5.4 pg/mL (6.6-18.1)
== END ==
LOC: M SFHCCLAY 08:35
PROVIDERS: ATTEND Nurse Practitioner Women's Health
DX: E34.9 Endocrine disorder, unspecified (principal)

== ENCOUNTER → 2021-09-18 | Outpatient (CLI) | payer OTHER | LOC: M RAD 12:00 | PROVIDERS: ATTEND Nurse Practitioner Women's Health | DX: E34.9 Endocrine disorder, unspecified (principal) ==

== ENCOUNTER → 2021-10-26 | Outpatient (REF) | payer OTHER ==
[2021-10-27 17:10] LABS: TESTOSTERONE FREE (DIRECT) 7.4 pg/mL (6.6-18.1)
== END ==
LOC: M LABSMT 07:49
PROVIDERS: ATTEND Urology
DX: R68.82 Decreased libido (principal)

== ENCOUNTER → 2022-02-01 | Outpatient (REF) | payer OTHER ==
[2022-02-01 12:17] LABS: BASO # 0.1 10^3/uL (0.0-0.2); BASO % 0.9 % (0.0-1.0); EOS # 0.2 10^3/uL (0.0-0.5); EOS % 1.9 % (0.0-3.0); HEMATOCRIT 44.8 % (42.0-52.0); HEMOGLOBIN 14.6 g/dl (13.5-17.5); LYMPH # 1.7 10^3/uL (1.5-5.0); LYMPH % 17.7 % (24.0-44.0); MEAN CORPUSCULAR HEMOGLOBIN 28.2 pg (27.0-33.0); MEAN CORPUSCULAR HGB CONC 32.6 g/dl (32.0-36.5); MEAN CORPUSCULAR VOLUME 86.7 fl (80.0-96.0); MONO # 0.9 10^3/uL (0.0-0.8); MONO % 9.7 % (2.0-8.0); NEUTROPHILS # 6.5 10^3/uL (1.5-8.5); NEUTROPHILS % 69.5 % (36.0-66.0); PLATELET COUNT, AUTOMATED 242 10^3/uL (150-450); RED BLOOD COUNT 5.17 10^6/uL (4.30-6.10); WHITE BLOOD COUNT 9.4 10^3/uL (4.0-10.0)
[2022-02-01 12:53] LABS: ALBUMIN 3.6 GM/DL (3.2-5.2); ALT/SGPT 26 U/L (12-78); BILIRUBIN,TOTAL 0.2 MG/DL (0.2-1.0); BLOOD UREA NITROGEN 17 MG/DL (7-18); CALCIUM LEVEL 8.8 MG/DL (8.8-10.2); CARBON DIOXIDE LEVEL 32 MEQ/L (21-32); CHLORIDE LEVEL 102 MEQ/L (98-107); CHOLESTEROL LEVEL 144 MG/DL (<200); CHOLESTEROL RISK RATIO 3.789 (<5); GLOMERULAR FILTRATION RATE > 60.0 (>49); GLUCOSE, FASTING 114 MG/DL (70-100); HDL CHOLESTEROL 38 MG/DL (>40); LDL CHOLESTEROL 84 MG/DL (<100); NON-HDL-C 106 MG/DL; POTASSIUM SERUM 3.5 MEQ/L (3.5-5.1); SODIUM LEVEL 137 MEQ/L (136-145); TRIGLYCERIDES LEVEL 110 MG/DL (<150)
[2022-02-01 15:32] LABS: HEMOGLOBIN A1c 5.9 %
[2022-02-02 12:12] LABS: TESTOSTERONE FREE (DIRECT) 5.2 pg/mL (6.6-18.1)
== END ==
LOC: M SFHCCLAY 07:35
PROVIDERS: ATTEND Family Medicine
DX: Z00.00 Encounter for general adult medical examination without abnormal findings (principal); E78.2 Mixed hyperlipidemia; R73.01 Impaired fasting glucose; E34.9 Endocrine disorder, unspecified; I10 Essential (primary) hypertension

== ENCOUNTER → 2023-02-10 | Outpatient (REF) | payer OTHER ==
[2023-02-10 13:12] LABS: HEMATOCRIT 47.2 % (42.0-52.0); HEMOGLOBIN 15.2 g/dl (13.5-17.5); MEAN CORPUSCULAR HEMOGLOBIN 26.3 pg (27.0-33.0); MEAN CORPUSCULAR HGB CONC 32.2 g/dl (32.0-36.5); MEAN CORPUSCULAR VOLUME 81.5 fl (80.0-96.0); PLATELET COUNT, AUTOMATED 241 10^3/uL (150-450); RED BLOOD COUNT 5.79 10^6/uL (4.30-6.10); WHITE BLOOD COUNT 8.7 10^3/uL (4.0-10.0)
[2023-02-10 13:19] LABS: ALBUMIN 3.9 G/DL (3.2-5.2); ALKALINE PHOSPHATASE 103 U/L (46-116); ALT/SGPT 30 U/L (7.0-40); AST/SGOT 24 U/L (<34); BILIRUBIN,TOTAL 0.4 MG/DL (0.3-1.2); BLOOD UREA NITROGEN 24 MG/DL (9-23); CALCIUM LEVEL 9.2 MG/DL (8.3-10.6); CARBON DIOXIDE LEVEL 31 MMOL/L (20-31); CHLORIDE LEVEL 104 MMOL/L (98-107); CHOLESTEROL LEVEL 156 MG/DL (<200); CHOLESTEROL RISK RATIO 4.14 (<5); CREATININE FOR GFR 1.08 MG/DL (0.70-1.30); GLOMERULAR FILTRATION RATE > 60.0 (>49); GLUCOSE, FASTING 116 MG/DL (74-106); HDL CHOLESTEROL 37.6 MG/DL (>40); NON-HDL-C 118.4 MG/DL; POTASSIUM SERUM 4.1 MMOL/L (3.5-5.1); SODIUM LEVEL 141 MMOL/L (136-145); TOTAL PROTEIN 7.3 G/DL (5.7-8.2); TRIGLYCERIDES LEVEL 102 MG/DL (<150)
[2023-02-10 13:47] LABS: HEMOGLOBIN A1c 5.6 % (4.0-6.0)
== END ==
LOC: M SFHCCLAY 08:57
PROVIDERS: ATTEND Family Medicine
DX: E78.2 Mixed hyperlipidemia (principal); R73.01 Impaired fasting glucose

== ENCOUNTER → 2023-08-15 | Outpatient (REF) | payer OTHER ==
[2023-08-15 12:06] LABS: HEMATOCRIT 48.3 % (42.0-52.0); HEMOGLOBIN 15.9 g/dl (13.5-17.5); MEAN CORPUSCULAR HEMOGLOBIN 29.2 pg (27.0-33.0); MEAN CORPUSCULAR HGB CONC 32.9 g/dl (32.0-36.5); MEAN CORPUSCULAR VOLUME 88.6 fl (80.0-96.0); PLATELET COUNT, AUTOMATED 200 10^3/uL (150-450); RED BLOOD COUNT 5.45 10^6/uL (4.30-6.10); WHITE BLOOD COUNT 8.4 10^3/uL (4.0-10.0)
[2023-08-15 12:11] LABS: ALBUMIN 3.6 G/DL (3.2-5.2); ALKALINE PHOSPHATASE 82 U/L (46-116); ALT/SGPT 36 U/L (7.0-40); AST/SGOT 31 U/L (<34); BILIRUBIN,TOTAL 0.5 MG/DL (0.3-1.2); BLOOD UREA NITROGEN 24 MG/DL (9-23); CALCIUM LEVEL 8.9 MG/DL (8.3-10.6); CARBON DIOXIDE LEVEL 33 MMOL/L (20-31); CHLORIDE LEVEL 104 MMOL/L (98-107); CREATININE FOR GFR 0.93 MG/DL (0.70-1.30); GLOMERULAR FILTRATION RATE > 60.0 (>49); GLUCOSE, FASTING 124 MG/DL (74-106); SODIUM LEVEL 140 MMOL/L (136-145); TOTAL PROTEIN 6.9 G/DL (5.7-8.2)
[2023-08-16 17:09] LABS: TESTOSTERONE FREE (DIRECT) 4.2 pg/mL (6.6-18.1)
== END ==
LOC: M SFHCCLAY 07:23
PROVIDERS: ATTEND Family Medicine
DX: I10 Essential (primary) hypertension (principal); E34.9 Endocrine disorder, unspecified; R73.01 Impaired fasting glucose

== ENCOUNTER → 2024-01-24 | Outpatient (REF) | payer OTHER | LOC: M SFHCDERM 17:43 | PROVIDERS: ATTEND Physician Assistant | DX: I78.1 Nevus, non-neoplastic (principal) ==

== ENCOUNTER → 2024-02-14 | Outpatient (REF) | payer OTHER ==
[2024-02-14 11:45] LABS: HEMATOCRIT 44.8 % (42.0-52.0); HEMOGLOBIN 14.7 g/dl (13.5-17.5); MEAN CORPUSCULAR HGB CONC 32.8 g/dl (32.0-36.5); MEAN CORPUSCULAR VOLUME 82.2 fl (80.0-96.0); PLATELET COUNT, AUTOMATED 265 10^3/uL (150-450); RED BLOOD COUNT 5.45 10^6/uL (4.30-6.10); WHITE BLOOD COUNT 8.5 10^3/uL (4.0-10.0)
[2024-02-14 11:49] LABS: ALBUMIN 3.9 G/DL (3.2-5.2); ALKALINE PHOSPHATASE 106 U/L (46-116); ALT/SGPT 30 U/L (7.0-40); AST/SGOT 20 U/L (<34); BILIRUBIN,TOTAL 0.5 MG/DL (0.3-1.2); BLOOD UREA NITROGEN 23 MG/DL (9-23); CALCIUM LEVEL 9.2 MG/DL (8.3-10.6); CARBON DIOXIDE LEVEL 29 MMOL/L (20-31); CHLORIDE LEVEL 102 MMOL/L (98-107); CHOLESTEROL LEVEL 176 MG/DL (<200); CHOLESTEROL RISK RATIO 4.38 (<5); CREATININE FOR GFR 0.96 MG/DL (0.70-1.30); GLOMERULAR FILTRATION RATE > 60.0 (>49); GLUCOSE, FASTING 118 MG/DL (74-106); HDL CHOLESTEROL 40.1 MG/DL (>40); LDL CHOLESTEROL 104.9 MG/DL (<100); MAGNESIUM LEVEL 2.1 MG/DL (1.8-2.4); NON-HDL-C 135.9 MG/DL; POTASSIUM SERUM 3.7 MMOL/L (3.5-5.1); SODIUM LEVEL 137 MMOL/L (136-145); TOTAL PROTEIN 7.6 G/DL (5.7-8.2); TRIGLYCERIDES LEVEL 155 MG/DL (<150)
[2024-02-14 11:59] LABS: HEMOGLOBIN A1c 5.8 % (4.0-6.0)
== END ==
LOC: M SFHCCLAY 06:59
PROVIDERS: ATTEND Family Medicine
DX: I10 Essential (primary) hypertension (principal); E34.9 Endocrine disorder, unspecified; E78.2 Mixed hyperlipidemia; R73.01 Impaired fasting glucose; K21.9 Gastro-esophageal reflux disease without esophagitis